=== PATIENT | female | born 1970 | race Caucasian/White ===

== ENCOUNTER 2016-10-20 12:45 | Observation (INO) | payer OTHER ==
[~2016-10-20] VITALS: Ht 157.5 cm; Wt 125.4 kg
[~2016-10-20 12:45] MED LIST: ABILIFY5 MG PO; AMBIEN10 MG PO; AMITRIPTYLINE H75 MG PO; ASPIRIN325 MG PO; ATARAX,VISTARIL50 MG; AUGMENTIN875 MG PO; BENADRYL ALLERG25 MG PO; BUPROPION XL300 MG PO; BUSPAR10 MG PO; BUSPAR15 MG PO; BUTALB-APAP-CA1 EACH PO; CLONAZEPAM0.5 MG; CLONAZEPAM0.5 MG PO; CYCLOBENZAPRINE 10 M; DESYREL100 MG PO; DIAZEPAM5 MG; FIORICET 50-301 EACH PO; FIORICET 50-321 EAC1 PO; FIORICET WI1 CAPSULE PO; FIORICET,ESG1 TABLET PO; FLEXERIL10 MG PO; IBUPROFEN800 MG; KLONOPIN0.5 M1 PO; LIPITOR20 MG PO; LORAZEPAM0.5 MG PO; LORTAB 5-325 M1 EACH PO; MOTRIN800 MG PO; MULTIVITAMIN1 EAC2 PO; NAPROSYN500 MG PO; NORCO 5/3251 TABLET PO; NORCO 7.5/321 TABLET PO; NORVASC5 MG PO; OXYCODONE-ACET1 EACH; PANTOPRAZOLE SO40 MG PO; PERCOCET 5/31 TABLET PO; PREDNISONE10 MG PO; PROPRANOLOL HCL80 M1 PO; PROPRANOLOL HCL80 MG PO; SERTRALINE HCL100 MG PO; TOPAMAX25 MG PO; TRAZODONE HCL100 MG PO; TRAZODONE HCL50 MG PO; ULTRAM50 MG PO; XANAX1 MG PO; ZOFRAN4 MG PO; ZOLOFT100 MG PO
[2016-10-20 13:09] LABS: POINT-OF-CARE METER ID UU13113778; POINT-OF-CARE USER ID NUTJNM
[2016-10-20] MEDS ORDERED: CLONAZEPAM0.5 MG PO (13:27)
[2016-10-20] MEDS ORDERED: REXULTI2 MG PO (13:28)
[2016-10-20] MEDS ORDERED: BELSOMRA20 MG PO (13:29)
[2016-10-20] MEDS ORDERED: BENADRYL50 MG PO (13:30)
[2016-10-20] MEDS ORDERED: HYDROXYZINE HCL50 MG PO (13:32)
[2016-10-20 14:08] LABS: HEMATOCRIT 42.4 % (36.0-46.0); MCH 28.6 PG (29.0-34.0); MCHC 33.5 G/DL (30.0-36.0); MCV 85.3 FL (83-99); MEAN PLAT.VOLUME 9.3 uM^3 (9.5-12.4); PLATELET COUNT 265 K/uL (156-360); RBC DIS.WIDTH-CV 12.3 % (11.8-14.6); RBC DIS.WIDTH-SD 38.4 % (39-53); RED BLOOD COUNT 4.97 M/uL (3.80-5.20); WHITE BLOOD COUNT 6.7 K/uL (4.1-10.2)
[2016-10-20 14:16] LABS: CHLORIDE 106 mEq/L (99-109); POTASSIUM 3.8 mEq/L (3.7-5.4); SODIUM 139 mEq/L (136-147)
[2016-10-20 14:18] LABS: GLUCOSE 90 mg/dL (70-99)
[2016-10-20 14:19] LABS: ANION GAP 10 MEQ/L (2-14)
[2016-10-20 14:22] LABS: GFR ESTIMATE (CALCULATED) 57 mL/min/
[2016-10-20 14:23] LABS: UREA NITROGEN (BUN) 9 mg/dL (9-23)
[2016-10-20 14:25] LABS: LIPASE 36 U/L (1.0-51.0)
[2016-10-20 14:26] LABS: ADD MIUA? YES; BILIRUBIN NEGATIVE; BLOOD NEGATIVE; COLOR YELLOW ((YELLOW)); GLUCOSE (STRIP) NEGATIVE; KETONES NEGATIVE; LEUKOCYTES LARGE; NITRITE POSITIVE; PROTEIN (STRIP) NEGATIVE; SPECIFIC GRAVITY 1.011 (1.000-1.030); UROBILINOGEN 0.2 MG/DL (0.2-1.0)
[2016-10-20 14:30] LABS: TROP-I INTERPRETATION NEGATIVE; TROPONIN-I < 0.01 ng/mL (0.0-0.30)
[2016-10-20 14:42] LABS: AMORPHOUS URATES CRYSTALS 1+; BACTERIA 2+ /HPF; CASTS NONE SEEN /LPF; CRYSTALS PRESENT; EPITHELIAL CELLS 1+ /HPF; MUCUS NONE SEEN /LPF; RED BLOOD CELLS NONE SEEN /HPF (0-5); WHITE BLOOD CELLS 40-50 /HPF (0-5)
[2016-10-20] MEDS ORDERED: DESYREL100 MG PO (16:45)
[2016-10-20] MEDS ORDERED: ONE-A-DAY ESSE1 EAC1 PO (16:45)
[2016-10-20 17:36] VITALS: BP 115/73
[2016-10-20 18:00] LABS: SAMPLE HEMOLYSIS CHECK 0; SAMPLE ICTERIC CHECK 0; SAMPLE LIPEMIA CHECK 0
[2016-10-20 18:05] LABS: HDL CHOLESTEROL 48 MG/DL (Desirable>=50); LDL CHOLESTEROL 220 mg/dL (Desirable<100); NON-HDL CHOLESTEROL 241 mg/dL (Desirable<160); TOTAL CHOLESTEROL 289 mg/dL (Desirable<200); TRIGLYCERIDES 104 MG/DL (Normal: <150)
[2016-10-20 18:28] LABS: TROP-I INTERPRETATION NEGATIVE; TROPONIN-I < 0.01 ng/mL (0.0-0.30)
[2016-10-21 00:06] VITALS: BP 110/62
[2016-10-21 01:18] LABS: TROP-I INTERPRETATION NEGATIVE; TROPONIN-I < 0.01 ng/mL (0.0-0.30)
[2016-10-21 03:05] VITALS: BP 108/57
[2016-10-21 07:10] VITALS: BP 111/61
[2016-10-21 11:32] VITALS: BP 118/82
[2016-10-21] MEDS ORDERED: ATORVASTATIN CA40 MG PO (14:59)
[2016-10-21] MEDS ORDERED: ASPIR-LOW81 MG PO (15:02)
[2016-10-21] MEDS ORDERED: CEFTIN500 MG PO (15:03)
[2016-10-21 15:53] VITALS: BP 122/65
== END 2016-10-21 18:16 ==
LOC: EME 12:45 → 5WEST 16:29 → EDOF 16:29 → 5WEST 17:31
PROVIDERS: Hospitalist; Nurse Practitioner Family
DX: N39.0 Urinary tract infection, site not specified (principal); R47.81 Slurred speech; F32.9 Major depressive disorder, single episode, unspecified; I10 Essential (primary) hypertension; G43.909 Migraine, unspecified, not intractable, without status migrainosus; I25.2 Old myocardial infarction; I25.10 Atherosclerotic heart disease of native coronary artery without angina pectoris; R07.9 Chest pain, unspecified; F41.9 Anxiety disorder, unspecified; R53.1 Weakness; R42 Dizziness and giddiness
CPT/HCPCS: 70450; 70551; 71020; 80048; 80061; 81003; 82948; 83036; 83690; 84443; 84484; 85027; 93005; 93880; 99281; 99285; G0378; J0696; J1650; J1885; J7050

== ENCOUNTER 2016-10-21 17:13 | Inpatient (IN) | payer OTHER ==
[~2016-10-21] VITALS: Ht 157.5 cm; Wt 126.8 kg
[~2016-10-21 17:13] MED LIST changes: +ASPIR-LOW81 MG PO; +ATORVASTATIN CA40 MG PO; +BELSOMRA20 MG PO; +BENADRYL50 MG PO; +CEFTIN500 MG PO; +HYDROXYZINE HCL50 MG PO; +ONE-A-DAY ESSE1 EAC1 PO; +REXULTI2 MG PO
[2016-10-21 18:26] VITALS: BP 125/62
[2016-10-22 07:52] VITALS: BP 104/59
[2016-10-22 15:41] VITALS: BP 126/79
[2016-10-23 07:34] VITALS: BP 94/57
[2016-10-23 10:45] VITALS: BP 141/83
[2016-10-23 15:49] VITALS: BP 102/61
[2016-10-24 07:53] VITALS: BP 92/50
[2016-10-24 16:09] VITALS: BP 141/94
[2016-10-25 08:11] VITALS: BP 91/53
[2016-10-25 13:37] VITALS: BP 131/85
[2016-10-25 15:43] VITALS: BP 122/77
[2016-10-26 07:46] VITALS: BP 121/67
[2016-10-26 15:40] VITALS: BP 145/71
[2016-10-27 07:48] VITALS: BP 95/49
[2016-10-27 11:40] VITALS: BP 120/82
[2016-10-27 15:55] VITALS: BP 125/77
[2016-10-28 07:42] VITALS: BP 94/57
[2016-10-28] MEDS ORDERED: VENLAFAXINE HCL75 M3 PO (09:32)
[2016-10-28] MEDS ORDERED: PRAZOSIN HCL1 MG PO (09:32)
== END 2016-10-28 10:55 | disposition home or self-care (01) | DRG 885 ==
LOC: 1WEST 17:13
DX: F33.3 Major depressive disorder, recurrent, severe with psychotic symptoms (principal); Z68.43 Body mass index [BMI] 50.0-59.9, adult; F60.9 Personality disorder, unspecified; N39.0 Urinary tract infection, site not specified; F41.9 Anxiety disorder, unspecified; E78.5 Hyperlipidemia, unspecified; R45.851 Suicidal ideations; G43.909 Migraine, unspecified, not intractable, without status migrainosus; F19.10 Other psychoactive substance abuse, uncomplicated; I25.2 Old myocardial infarction
CPT/HCPCS: 97150 GO; 97165 GO; Q0177

== ENCOUNTER 2017-04-25 17:29 | Emergency (ER) | payer OTHER ==
[~2017-04-25] VITALS: Ht 157.5 cm; Wt 130.7 kg
[~2017-04-25 17:29] MED LIST changes: +PRAZOSIN HCL1 MG PO; +VENLAFAXINE HCL75 M3 PO
[2017-04-25] MEDS ORDERED: IMITREX4 MG/0.5 M SC (22:19)
[2017-04-25 23:25] VITALS: BP 121/76
== END 2017-04-25 23:26 | disposition home or self-care (01) ==
LOC: EME 17:29
DX: R51 Headache (principal); I10 Essential (primary) hypertension; I25.10 Atherosclerotic heart disease of native coronary artery without angina pectoris; I25.2 Old myocardial infarction; Z98.61 Coronary angioplasty status; Z88.8 Allergy status to other drugs, medicaments and biological substances
CPT/HCPCS: 99281; 99284; J1100; J1200; J1885; J2270; J7030

== ENCOUNTER 2017-07-29 21:42 | Emergency (ER) | payer OTHER ==
[~2017-07-29] VITALS: Ht 157.5 cm; Wt 131.7 kg
[~2017-07-29 21:42] MED LIST changes: +IMITREX4 MG/0.5 M SC
[2017-07-30] MEDS ORDERED: INDOCIN50 MG PO (01:17)
[2017-07-30] MEDS ORDERED: NORCO 7.5/321 TABLET PO (01:17)
[2017-07-30 01:20] VITALS: BP 130/84
== END 2017-07-30 01:40 | disposition home or self-care (01) ==
LOC: EME 21:42
DX: S29.012A Strain of muscle and tendon of back wall of thorax, initial encounter (principal); S39.012A Strain of muscle, fascia and tendon of lower back, initial encounter; V49.40XA Driver injured in collision with unspecified motor vehicles in traffic accident, initial encounter; Y92.410 Unspecified street and highway as the place of occurrence of the external cause; I10 Essential (primary) hypertension; I25.10 Atherosclerotic heart disease of native coronary artery without angina pectoris; G43.909 Migraine, unspecified, not intractable, without status migrainosus; I25.2 Old myocardial infarction; Z90.49 Acquired absence of other specified parts of digestive tract; Z88.8 Allergy status to other drugs, medicaments and biological substances
CPT/HCPCS: 72070; 72100; 99281; 99284; J1885

== ENCOUNTER 2017-08-21 16:18 | Inpatient (IN) | payer OTHER ==
[~2017-08-21] VITALS: Ht 157.5 cm; Wt 128.4 kg
[~2017-08-21 16:18] MED LIST changes: +INDOCIN50 MG PO
[2017-08-21 16:48] LABS: HEMATOCRIT 44.2 % (36.0-46.0); HEMOGLOBIN 14.9 G/DL (11.9-15.5); MCH 27.8 PG (29.0-34.0); MCHC 33.7 G/DL (30.0-36.0); MCV 82.5 FL (83-99); PLATELET COUNT 369 K/uL (156-360); RBC DIS.WIDTH-CV 13.3 % (11.8-14.6); RBC DIS.WIDTH-SD 39.7 % (39-53); RED BLOOD COUNT 5.36 M/uL (3.80-5.20); WHITE BLOOD COUNT 10.3 K/uL (4.1-10.2)
[2017-08-21 16:57] LABS: CHLORIDE 104 mEq/L (99-109); POTASSIUM 3.9 mEq/L (3.7-5.4); SODIUM 140 mEq/L (136-147)
[2017-08-21 16:58] LABS: GLUCOSE 85 mg/dL (70-99)
[2017-08-21 17:02] LABS: GFR ESTIMATE (CALCULATED) > 59 mL/min/; SERUM ETHYL ALCOHOL < 10 mg/dL
[2017-08-21 17:03] LABS: UREA NITROGEN (BUN) 9 mg/dL (9-23)
[2017-08-21 17:10] LABS: AMPHETAMINE NEGATIVE (500 ng/mL); BARBITURATES NEGATIVE (200 ng/mL); BENZODIAZEPINES PRESUMPTIVE POSITIVE (150 ng/mL); BUPRENORPHINE NEGATIVE (10 ng/mL); COCAINE NEGATIVE (150 ng/mL); METHADONE NEGATIVE (200 ng/mL); METHAMPHETAMINE NEGATIVE (500 ng/mL); OPIATES (MORPHINE) NEGATIVE (100 ng/mL); OXYCODONE NEGATIVE (100 ng/mL); PHENCYCLIDINE NEGATIVE (25 ng/mL); PROPOXYPHENE NEGATIVE (300 ng/mL); THC CANNABINOIDS NEGATIVE (50 ng/mL); TRICYCLIC ANTIDEPRESSANTS PRESUMPTIVE POSITIVE (300 ng/mL)
[2017-08-21 17:55] LABS: BENZODIAZEPINES, URINE SCREEN Negative (200 ng/mL)
[2017-08-21 17:56] LABS: ACETAMINOPHEN (TYLENOL) < 10 mcg/mL (10-30)
[2017-08-21] MEDS ORDERED: ATIVAN1 MG PO (19:53)
[2017-08-21] MEDS ORDERED: ATORVASTATIN CA20 MG PO (19:53)
[2017-08-21 20:17] VITALS: BP 124/89
[2017-08-22 07:53] VITALS: BP 148/89
[2017-08-22 16:29] VITALS: BP 131/96
[2017-08-23 09:27] VITALS: BP 112/73
[2017-08-23 16:55] VITALS: BP 112/66
[2017-08-24 09:24] VITALS: BP 137/71
[2017-08-24 16:39] VITALS: BP 144/68
[2017-08-25 08:00] VITALS: BP 113/69
[2017-08-25 16:18] VITALS: BP 115/69
[2017-08-26 07:41] VITALS: BP 106/63
[2017-08-26 15:28] VITALS: BP 146/91
[2017-08-26 19:03] VITALS: BP 127/81
[2017-08-27 07:52] VITALS: BP 109/74
[2017-08-27 16:01] VITALS: BP 121/68
[2017-08-28 07:55] VITALS: BP 120/70
[2017-08-28 16:25] VITALS: BP 128/72
[2017-08-29 08:00] VITALS: BP 113/63
[2017-08-29 14:38] VITALS: BP 131/70
[2017-08-29 22:08] VITALS: BP 128/88
[2017-08-30 07:30] VITALS: BP 118/75
[2017-08-30] MEDS ORDERED: SERTRALINE HCL100 MG PO (10:06)
[2017-08-30] MEDS ORDERED: BUPROPION HCL150 M2 PO (10:06)
[2017-08-30] MEDS ORDERED: ARIPIPRAZOLE10 MG PO (10:06)
[2017-08-30] MEDS ORDERED: PRAZOSIN HCL1 MG PO (10:06)
[2017-08-30] MEDS ORDERED: TRAMADOL HCL50 MG PO (10:06)
[2017-08-30] MEDS ORDERED: ALPRAZOLAM0.5 MG PO (10:11)
== END 2017-08-30 11:00 | disposition home or self-care (01) | DRG 885 ==
LOC: EME 16:18 → EDOF 18:25 → 1WEST 20:02 → ENRESERV 20:02 → 1WEST 08-30 11:00
DX: F33.3 Major depressive disorder, recurrent, severe with psychotic symptoms (principal); Z68.43 Body mass index [BMI] 50.0-59.9, adult; R45.851 Suicidal ideations; F43.10 Post-traumatic stress disorder, unspecified; F60.9 Personality disorder, unspecified; I10 Essential (primary) hypertension; Z60.2 Problems related to living alone; E66.01 Morbid (severe) obesity due to excess calories; F41.9 Anxiety disorder, unspecified; R51 Headache; Z91.5 Personal history of self-harm; Z90.49 Acquired absence of other specified parts of digestive tract; Z56.0 Unemployment, unspecified
CPT/HCPCS: 80048; 84999; 85027; 90839; 97150 GO; 97165 GO; 99281; 99285; G0480; Q0177

== ENCOUNTER 2017-10-07 11:54 | Emergency (ER) | payer OTHER ==
[~2017-10-07] VITALS: Ht 157.5 cm; Wt 130.1 kg
[~2017-10-07 11:54] MED LIST changes: +ALPRAZOLAM0.5 MG PO; +ARIPIPRAZOLE10 MG PO; +ATIVAN1 MG PO; +ATORVASTATIN CA20 MG PO; +BUPROPION HCL150 M2 PO; +TRAMADOL HCL50 MG PO
[2017-10-07 16:53] VITALS: BP 124/78
== END 2017-10-07 16:54 | disposition home or self-care (01) ==
LOC: EME 11:54
DX: R51 Headache (principal); I10 Essential (primary) hypertension; I25.2 Old myocardial infarction; I25.10 Atherosclerotic heart disease of native coronary artery without angina pectoris; Z86.69 Personal history of other diseases of the nervous system and sense organs; Z98.51 Tubal ligation status; Z98.890 Other specified postprocedural states; Z90.49 Acquired absence of other specified parts of digestive tract; Z88.8 Allergy status to other drugs, medicaments and biological substances
CPT/HCPCS: 99281; 99284; J1100; J1200; J1885; J2270; J2765